=== PATIENT | female | born 1990 | race Caucasian/White ===

== ENCOUNTER → 2018-06-02 | Outpatient (CLI) | payer OTHER ==
[~2018-06-02] MED LIST: ABILIFY10 MG PO; ADVAIR 250/501 EA INH; ALBUTEROL0.09 MG/A2 INH; AMOXICILLIN500 M2 PO; CELEXA10 MG PO; CELEXA20 MG PO; KEPPRA500 MG PO; MEDROL DOSEPAK4 MG PO; PHENERGAN12.5 M2 RC; PRENATAL1 TA7 PO; Phenergan25 MG PO; VISTARIL25 MG PO
== END | disposition home or self-care (01) ==
LOC: US 12:25
DX: Z34.81 Encounter for supervision of other normal pregnancy, first trimester (principal); Z3A.08 8 weeks gestation of pregnancy